=== PATIENT | female | born 1980 | race Two or more races ===

== ENCOUNTER 2020-04-19 20:06 | Emergency (ER) | payer OTHER ==
[~2020-04-19] VITALS: Ht 165.1 cm; Wt 73.9 kg
[2020-04-19] MEDS ORDERED: NAPROXEN375 MG PO (22:54)
== END 2020-04-19 22:46 | disposition home or self-care (01) ==
LOC: ER 20:06
DX: S93.401A Sprain of unspecified ligament of right ankle, initial encounter (principal); X50.0XXA Overexertion from strenuous movement or load, initial encounter; Y93.89 Activity, other specified; Y92.89 Other specified places as the place of occurrence of the external cause; Y99.8 Other external cause status